=== PATIENT | male | born 1990 | race Caucasian/White ===

== ENCOUNTER 2021-02-01 20:03 | Emergency (ER) | payer SELFPAY ==
[~2021-02-01] VITALS: Ht 165.1 cm; Wt 67.1 kg
[2021-02-01 23:33] VITALS: BP 140/86
[2021-02-01] MEDS ORDERED: ACETAMINOPHEN 650 mg PER 20.3 mL UD PO ONE (23:45)
[2021-02-01] MEDS ORDERED: cefTRIAXone SOD 1,000 MG VL IM ONE (23:45)
[2021-02-02] MEDS ORDERED: methylPREDNISolone SOD SUCC 125 MG/2 ML VL IM ONE (00:45)
== END 2021-02-02 01:34 | disposition home or self-care (01) ==
LOC: ER 20:06
DX: J03.90 Acute tonsillitis, unspecified (principal); M54.2 Cervicalgia
CPT/HCPCS: 70490; 96372; 99284; J0696; J2930